=== PATIENT | male | born 1995 | race Caucasian/White ===

== ENCOUNTER 2023-11-08 19:25 | Emergency (ER) | payer BC, SELFPAY ==
[2023-11-08 19:48] VITALS: BP 148/71; PULSE 98; RESP 18; TEMP 36.9; O2SAT 100
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
== END 2023-11-08 20:33 | disposition home or self-care (01) ==
PROVIDERS: Emergency Provider Nurse Practitioner Family
DX: S01.81XA Laceration without foreign body of other part of head, initial encounter (principal); W22.8XXA Striking against or struck by other objects, initial encounter; Y93.17 Activity, water skiing and wake boarding
CPT/HCPCS: 12013; 99213; G0463